=== PATIENT | male | born 1955 | race Caucasian/White ===

== ENCOUNTER 2017-10-11 03:14 | Emergency (ER) | payer BC, OTHER ==
[2017-10-11 03:15] VITALS: O2SAT 97
[2017-10-11 03:21] VITALS: BP 144/94; PULSE 75; RESP 20; TEMP 97.5
== END 2017-10-11 04:02 | disposition left against medical advice (07) ==
LOC: ED 03:14
DX: Z53.21 Procedure and treatment not carried out due to patient leaving prior to being seen by health care provider (principal)

== ENCOUNTER 2018-10-12 09:49 | Day surgery (SDC) | payer BC ==
[~2018-10-12 09:49] MED LIST: PROPOFOL 500 MG/50 ML EMU IV ONE
[2018-10-12 11:36] VITALS: BP 139/86; PULSE 66; RESP 20; TEMP 97.4; O2SAT 94
== END 2018-10-12 11:52 | disposition home or self-care (01) ==
LOC: SURG 09:49
PROVIDERS: ATTEND Surgery
DX: Z12.11 Encounter for screening for malignant neoplasm of colon (principal); D12.2 Benign neoplasm of ascending colon; D12.5 Benign neoplasm of sigmoid colon
CPT/HCPCS: 99001; J2704